=== PATIENT | female | born 1945 | race Caucasian/White ===

== ENCOUNTER 2017-11-19 18:21 | Emergency (ER) | payer MEDICARE, OTHER ==
[~2017-11-19 18:21] MED LIST: AZMACORT100 MCG INH; HYDR-2768 PO; LISI-360 PO; MEVA40TA PO; MULT-65 PO; TRAZ50TA4 PO
[2017-11-19 18:35] VITALS: BP 128/66; PULSE 70; RESP 20; TEMP 98.6
[2017-11-19] MEDS ORDERED: LOVA40TA PO (18:43)
[2017-11-19] MEDS ORDERED: BENZ100 PO (18:43)
[2017-11-19] MEDS ORDERED: SERT25TA83 PO (18:43)
[2017-11-19] MEDS ORDERED: TRAZ50TA12 PO (18:43)
[2017-11-19] MEDS ORDERED: ELUX1TAB2 PO (18:43)
[2017-11-19] MEDS ORDERED: HYDR25TA5 PO (18:43)
[2017-11-19] MEDS ORDERED: LISI10TA3 PO (18:43)
[2017-11-19] MEDS ORDERED: ALBUAER3 INH ×2 (18:43→20:34)
[2017-11-19 19:00] VITALS: BP 140/75; PULSE 69; RESP 20; O2SAT 97
--- NOTE | 2017-11-19 19:11 | PD ---
HPI Chief Complaint: Respiratory Symptoms Time Seen by Provider: 19:06 Travel History International Travel<30 days: No Contact w/Intl Traveler<30days: No Traveled to known affect area: No History of Present Illness HPI The patient is a 71-year-old female that has been coughing and short of breath for 2 weeks. She states she has a history of asthma. She does not have a nebulizer machine at home. She complains of a sore throat and questionable fever. She does have a history of anxiety. She states she has been wheezing at home. She is already been tried on prednisone and Zithromax by her primary care physician, Dr. Graff. She does not smoke. The patient has a persistent cough and wants something for the cough. PFSH Past Medical History Asthma: Yes Anxiety: Yes High Cholesterol: Yes Gastrointestinal Disorders: Yes (IBS) Hypertension: Yes Musculoskeletal: Yes (HERNIATED DISC) Neurologic: Yes (NEUROPATHY) Respiratory: Yes (ASTHMA) Triglycerides - High: Yes Influenza Vaccination: Yes Past Surgical History Hysterectomy: Yes Social History Alcohol Use: No Tobacco Use: No Substance Use: No Allergies-Medications (Allergen,Severity, Reaction): Coded Allergies: phenobarbital (Unverified Allergy, Severe, ITCHY RASH, 11/19/17) Reported Meds & Prescriptions Reported Meds & Active Scripts Active Reported Tessalon Perles (Benzonatate) 100 Mg Cap 100 Mg PO TID PRN Viberzi (Eluxadoline) 100 Mg Tab 100 Mg PO BID Proair Hfa 8.5 GM Inh (Albuterol Sulfate) 90 Mcg/Act Aer 2 Puff INH Q6H PRN 108 mcg/actuation Sertraline (Sertraline HCl) 25 Mg Tab 25 Mg PO DAILY Trazodone (Trazodone HCl) 50 Mg Tab 50 Mg PO HS Lovastatin 40 Mg Tab 40 Mg PO HS Lisinopril 10 Mg Tab 10 Mg PO DAILY Hydrochlorothiazide 25 Mg Tab 25 Mg PO DAILY Review of Systems Except as stated in HPI: all other systems reviewed are Neg Physical Exam Narrative GENERAL: The patient is alert, oriented 3 in no respiratory distress. Her vital signs are normal. SKIN: Focused skin assessment warm/dry. HEAD: Atraumatic. Normocephalic. EYES: Pupils equal and round. No scleral icterus. No injection or drainage. ENT: No nasal bleeding or discharge. Mucous membranes pink and moist. NECK: Trachea midline. No JVD. CARDIOVASCULAR: Regular rate and rhythm. No murmur appreciated. RESPIRATORY: No accessory muscle use. Clear to auscultation. Breath sounds equal bilaterally. GASTROINTESTINAL: Abdomen soft, non-tender, nondistended. Hepatic and splenic margins not palpable. No guarding or rebound is present. MUSCULOSKELETAL: No obvious deformities. No clubbing. No cyanosis. No edema. NEUROLOGICAL: Awake and alert. No obvious cranial nerve deficits. Motor grossly within normal limits. Normal speech. PSYCHIATRIC: The patient appears slightly anxious; insight and judgment normal. Data Data Last Documented VS Vital Signs Date Time Temp Pulse Resp B/P (MAP) Pulse Ox O2 Delivery O2 Flow Rate FiO2 11/19/17 19:34 62 20 97 11/19/17 19:30 Room Air 11/19/17 19:30 115/56 (75) 11/19/17 18:35 98.6 Orders Orders Complete Blood Count With Diff (11/19/17 19:06) Basic Metabolic Panel (Bmp) (11/19/17 19:06) Influenzae A/B Antigen (11/19/17 19:06) Iv Access Insert/Monitor (11/19/17 19:06) Ecg Monitoring (11/19/17 19:06) Oximetry (11/19/17 19:06) Oxygen Administration (11/19/17 19:06) Chest, Pa & Lat (11/19/17 19:06) Sodium Chloride 0.9% Flush (Ns Flush) (11/19/17 19:15) Albuterol-Ipratropium Neb (Duoneb Neb) (11/19/17 19:15) Group A Rapid Strep Screen (11/19/17 19:06) Strep Culture (Group A) (11/19/17 19:10) Labs Laboratory Tests Test 11/19/17 19:25 White Blood Count 7.8 TH/MM3 Red Blood Count 4.57 MIL/MM3 Hemoglobin 13.9 GM/DL Hematocrit 40.6 % Mean Corpuscular Volume 89.0 FL Mean Corpuscular Hemoglobin 30.6 PG Mean Corpuscular Hemoglobin Concent 34.4 % Red Cell Distribution Width 13.5 % Platelet Count 218 TH/MM3 Mean Platelet Volume 8.4 FL Neutrophils (%) (Auto) 67.5 % Lymphocytes (%) (Auto) 23.3 % Monocytes (%) (Auto) 6.9 % Eosinophils (%) (Auto) 1.7 % Basophils (%) (Auto) 0.6 % Neutrophils # (Auto) 5.4 TH/MM3 Lymphocytes # (Auto) 1.8 TH/MM3 Monocytes # (Auto) 0.5 TH/MM3 Eosinophils # (Auto) 0.1 TH/MM3 Basophils # (Auto) 0.0 TH/MM3 CBC Comment DIFF FINAL Differential Comment Blood Urea Nitrogen 22 MG/DL Creatinine 1.00 MG/DL Random Glucose 97 MG/DL Calcium Level 9.1 MG/DL Sodium Level 139 MEQ/L Potassium Level 3.6 MEQ/L Chloride Level 102 MEQ/L Carbon Dioxide Level 30.9 MEQ/L Anion Gap 6 MEQ/L Estimat Glomerular Filtration Rate 55 ML/MIN MDM Medical Decision Making Medical Screen Exam Complete: Yes Emergency Medical Condition: Yes Medical Record Reviewed: Yes Interpretation(s) The CBC is normal. The basic metabolic profile shows a BUN of 22 and GFR is 55 but is otherwise normal. The PA and lateral chest x-ray shows mild interstitial prominence that is likely chronic. The strep screen is negative for group A strep antigen. The influenza A/B antigen is negative for flu a and flu B antigen. Differential Diagnosis Viral upper respiratory infection, pneumonia, bronchiolitis, acute asthma Narrative Course The patient got some relief with the DuoNeb treatments. She does not have a nebulizer machine at home will be given an albuterol HFA puffer. She will also get codeine-containing cough syrup. Diagnosis Primary Impression: Bronchospasm, acute Additional Impression: Viral URI Additional Instructions: As we discussed, follow-up with Dr. Graff. The cough syrup is 10 cc p.o. every 4 hours as needed for cough and the albuterol HFA is 2 puffs every 4 hours as needed for wheezing/cough. Med/Other Pt SpecificInfo: Prescription(s) given Scripts Albuterol 8.5 GM Inh (Proair Hfa 8.5 GM Inh) 90 Mcg/Act Aer 2 PUFF INH Q4-6H Y for SHORTNESS OF BREATH, #1 INHALER 0 Refills 108 mcg/actuation Prov: Wally James MD 11/19/17 Guaifenesin-Codeine Liq (Guaifenesin AC Liq) 100-10 Mg/5 Ml Syrp 10 ML PO Q4H Y for COUGH, #1 BOTTLE 0 Refills Prov: Wally James MD 11/19/17 Disposition: 01 DISCHARGE HOME Condition: Stable ([id number]) Wally James MD Nov 19, 2017 19:11
[2017-11-19] MEDS: RESP: ALBUTEROL 2.5 MG/IPRATROPIUM 0.5 MG NEB (SCH) INH ×3 (19:14→19:34)
[2017-11-19] MEDS ORDERED: SODIUM CHLORIDE 0.9% FLUSH 10 ML FLUSH IVF PRN (19:15)
[2017-11-19 19:30] VITALS: BP 115/56; PULSE 70; RESP 20; O2SAT 97
[2017-11-19 19:34] LABS: AUTOMATED NEUTROPHIL # 5.4 TH/MM3 (1.8-7.7); BASOPHIL % 0.6 % (0.0-2.0); EOSINOPHIL # 0.1 TH/MM3 (0-0.4); EOSINOPHIL % 1.7 % (0.0-4.0); HEMATOCRIT 40.6 % (35.0-46.0); HEMOGLOBIN 13.9 GM/DL (11.6-15.3); LYMPH % 23.3 % (9.0-44.0); LYMPHOCYTE # 1.8 TH/MM3 (1.0-4.8); MEAN CORPUSCULAR HEMOGLOBIN 30.6 PG (27.0-34.0); MEAN CORPUSCULAR HGB CONC 34.4 % (32.0-36.0); MEAN PLATELET VOLUME 8.4 FL (7.0-11.0); MONO % 6.9 % (0.0-8.0); MONOCYTE # 0.5 TH/MM3 (0-0.9); NEUT % 67.5 % (16.0-70.0); PLATELET COUNT 218 TH/MM3 (150-450); RED BLOOD COUNT 4.57 MIL/MM3 (4.00-5.30); RED CELL DISTRIBUTION WIDTH 13.5 % (11.6-17.2); WHITE BLOOD COUNT 7.8 TH/MM3 (4.0-11.0)
[2017-11-19 19:44] LABS: BICARBONATE 30.9 MEQ/L (21.0-32.0); CALCIUM 9.1 MG/DL (8.5-10.1)
[2017-11-19 20:00] VITALS: BP 121/65; PULSE 73; RESP 20; O2SAT 98
--- NOTE | 2017-11-19 20:12 | RADRPT ---
EXAM DATE/TIME: 11/19/2017 19:29 [facility] COMPARISON: No previous studies available for comparison. INDICATIONS : Asthma- Shortness of breath and chest pain. MEDICAL HISTORY : Asthma. Bronchitis. SURGICAL HISTORY : None. ENCOUNTER: Initial ACUITY: 1 day PAIN SCORE: 4/10 LOCATION: Bilateral chest FINDINGS: PA and lateral views of the chest demonstrate the lungs to be symmetrically aerated without evidence of mass, infiltrate or effusion. There is mild interstitial prominence. The cardiomediastinal conto urs are unremarkable. Osseous structures are intact. CONCLUSION: Mild interstitial prominence that could be chronic. Doubt congestive failure. Sam Dalton MD FACR on November 19, 2017 at 20:08 Board Certified Radiologist. This report was verified electronically.
[2017-11-19] MEDS ORDERED: GUAISYP4 PO (20:34)
[2017-11-19 21:06] VITALS: BP 138/67
== END 2017-11-19 21:09 | disposition home or self-care (01) ==
LOC: PHED 18:21
DX: J45.909 Unspecified asthma, uncomplicated (principal); J06.9 Acute upper respiratory infection, unspecified; E78.00 Pure hypercholesterolemia, unspecified; I10 Essential (primary) hypertension
CPT/HCPCS: 71046; 80048; 85025; 87081; 87804; 87880; 94640; 94664; 99284